=== PATIENT | male | born 1965 | race Caucasian/White ===

== ENCOUNTER 2018-08-01 10:59 | Day surgery (SDC) | payer OTHER ==
[2018-08-01] MEDS ORDERED: NS 1,000 ML IV (11:15)
[2018-08-01] MEDS ORDERED: PROPOFOL 200 MG/20 ML VIAL As Ordered ×3 (11:16→12:40)
[2018-08-01] MEDS ORDERED: LIDOCAINE 2% INJ 100 MG/5 ML SDV (FOR ANES.) As Ordered (11:16)
[2018-08-01] MEDS ORDERED: fentaNYL 100 MCG/2 ML INJECTION (J3010) As Ordered (11:16)
== END 2018-08-01 13:35 | disposition home or self-care (01) ==
LOC: M OPP 10:59
DX: Z12.11 Encounter for screening for malignant neoplasm of colon (principal); K21.9 Gastro-esophageal reflux disease without esophagitis; R12 Heartburn; F32.9 Major depressive disorder, single episode, unspecified; Z87.820 Personal history of traumatic brain injury; M19.90 Unspecified osteoarthritis, unspecified site; G47.8 Other sleep disorders; G47.30 Sleep apnea, unspecified; R06.83 Snoring; F17.210 Nicotine dependence, cigarettes, uncomplicated; E66.9 Obesity, unspecified; Z88.8 Allergy status to other drugs, medicaments and biological substances; Z79.899 Other long term (current) drug therapy
CPT/HCPCS: G0121

== ENCOUNTER 2019-03-30 08:52 | Observation (INO) | payer OTHER ==
[~2019-03-30] VITALS: Ht 180.3 cm; Wt 101.9 kg
[~2019-03-30 08:52] MED LIST: ADDE10CA3 PO; ADDE30CA3 PO; CELE1CAP4 PO; CENTCHW4 PO; DEPA1TAB3 PO; GLUC1CAP10 PO; PROT1TAB2 PO; ZOLO100T PO
[2019-03-30 09:33] LABS: BASO % 0.4 % (0.0-1.0); EOS # 0.1 10^3/uL (0.0-0.50); EOS % 1.2 % (0.0-3.0); HEMOGLOBIN 16.4 g/dl (13.5-17.5); LYMPH % 19.4 % (24.0-44.0); MEAN CORPUSCULAR HGB CONC 34.9 g/dl (32.0-36.5); MEAN CORPUSCULAR VOLUME 97.3 fl (80.0-96.0); MONO % 10.2 % (0.0-5.0); NEUTROPHILS # 6.9 10^3/uL (1.8-7.7); NEUTROPHILS % 67.9 % (36.0-66.0); PLATELET COUNT, AUTOMATED 244 10^3/uL (150-450); RED BLOOD COUNT 4.83 10^6/uL (4.30-6.10); WHITE BLOOD COUNT 10.1 10^3/uL (4.0-10.0)
[2019-03-30 09:41] LABS: INR 0.99; PROTHROMBIN TIME 13.2 SECONDS (12.1-14.4)
--- NOTE | 2019-03-30 09:54 | REP ---
CHEST: Single view. There is no evidence of acute infiltrate. No pleural effusion is seen. The heart is normal in size. The mediastinal silhouette is unremarkable. The visualized osseous structures are intact. IMPRESSION: No acute pulmonary disease. Electronically Signed by Farrukh Burgos MD 04/04/2019 11:34 A
[2019-03-30 11:45] LABS: ALBUMIN 3.3 GM/DL (3.2-5.2); ALT/SGPT 34 U/L (12-78); BILIRUBIN,DIRECT 0.2 MG/DL (0.0-0.2); BILIRUBIN,TOTAL 0.9 MG/DL (0.2-1.0); BLOOD UREA NITROGEN 11 MG/DL (7-18); CARBON DIOXIDE LEVEL 27 MEQ/L (21-32); CHLORIDE LEVEL 109 MEQ/L (98-107); CPK CREATINE PHOSPHOKINASE 123 U/L (39-308); CREATININE FOR GFR 0.91 MG/DL (0.70-1.30); GLOMERULAR FILTRATION RATE > 60.0 (>56); GLUCOSE, FASTING 117 MG/DL (70-100); MB/CK RELATIVE INDEX 1.79 (< OR =4); NT-PRO BNP 125 PG/ML (<125); POTASSIUM SERUM 4.3 MEQ/L (3.5-5.1); SODIUM LEVEL 142 MEQ/L (136-145); THYROID STIMULATING HORMONE 0.837 uIU/ML (0.358-3.740); TROPONIN I < 0.02 NG/ML (< 0.10)
[2019-03-30] MEDS ORDERED: ISOVUE-370 76% 100ML VIAL (Q9967) As Ordered ONE (12:07)
--- NOTE | 2019-03-30 13:03 | REP ---
CT pulmonary angiogram: With IV contrast. History: Chest pain and shortness of breath. Comparison studies: Comparison is made with today's chest x-ray. Contrast dose: 75 mL of Isovue [address] technique: Helical scanning is acquired and overlapping 1.5 mm and contiguous 3 mm axial images are reformatted. In addition, maximum intensity projection and multiplanar re-formation images are generated in sagittal and coronal imaging projections. CT pulmonary angiographic findings: There is good opacification of the pulmonary arterial tree and there are multiple filling defects in the pulmonary arterial tree indicating fairly extensive pulmonary emboli. These are seen in both lower lobes, both upper lobes, and in the right middle lobe distribution. No central main pulmonary artery thrombi seen. Thoracic aorta enhances normally and homogeneously. No dissection or aneurysm is seen. There is no evidence of pleural or pericardial effusion. No hilar or mediastinal mass or adenopathy is observed. Bone window settings show no bony destructive lesion. No pulmonary mass or significant nodule is appreciated. Visualized upper abdominal structures are unremarkable. Impression: Multiple bilateral fairly extensive pulmonary emboli. Findings were telephoned to the referring provider at the time of this dictation. Electronically Signed by Reji Wong MD 03/30/2019 02:51 P
[2019-03-30] MEDS ORDERED: DEPA500T2 PO (13:43)
[2019-03-30] MEDS ORDERED: MULT1TAB50 PO (13:43)
--- NOTE | 2019-03-30 14:27 | REP ---
Duplex extremity venous ultrasound: Bilateral lower extremity. History: Pulmonary embolus. Question DVT. Findings: The deep veins are anechoic and fully compressible from the groin to the popliteal fossa in the left and right lower extremity. Color flow imaging is homogeneous. Spectral Doppler interrogation demonstrates intact respiratory variation in flow and normal manual augmentation of flow. There is no evidence of deep vein thrombosis. Impression: Negative bilateral lower extremity duplex venous ultrasound. No evidence of deep vein thrombosis. Electronically Signed by Reji Wong MD 03/30/2019 02:18 P
[2019-03-30] MEDS ORDERED: MOM 30ML SUSPENSION UDC PO PRN (14:45)
[2019-03-30 14:47] LABS: PROTHROMBIN TIME 13.3 SECONDS (12.1-14.4)
[2019-03-30 14:48] LABS: PARTIAL THROMBOPLASTIN TIME 30.1 SECONDS (25.4-37.6)
--- NOTE | 2019-03-30 15:05 | HPEPDOC ---
[facility] Medical History & Physical Date of Admission March 30, 2019 History and Physical CHIEF COMPLAINT: [Chest pain and shoulder pain] HISTORY OF PRESENT ILLNESS: [53-year-old gentleman with significant past medical history mood disorder and GERD who presented complaining of left-sided chest pain and shoulder pain that started yesterday last night. Patient describes severe chest pain pain as nonradiating pain that worsens with deep breath. Rodrigo chavez denies of any shortness of breath associated with this. Patient also complained of left-sided calf pain but thought to be muscle pain. Patient denies of any family history or self history of cancer. Patient denies of any immobility. Agent does smoke on and off and lasts use of cigarette was 4 days ago he does utilize vapping. Emergency room patient received medication in addition was evaluated with a CT of the chest which showed multiple bilateral fairly extensive pulmonary emboli. Lower extremity Doppler was negative for DVT. Chest x-ray showed no acute pulmonary disease. EKG showed heart rate of 78, sinus, no ST elevation. Cardiac enzymes negative. Patient denies of any fever, cough, shortness of breath but does have pain with deep aspiration, diarrhea, dysuria.With patient's consent I spoke to his daughter, who is a nurse, regarding patient.She inform me that patient drinks heavily. Patient stated he only drank 3-4 beers/sometimes a day. Daughter informed he drinks more. PAST MEDICAL HISTORY: Mood disorder GERD PAST SURGICAL HISTORY: 2 ankle surgery 2 Right knee surgery Right ear surgery with hearing implant Left ear surgery Left wrist surgery SOCIAL HISTORY: Patient on and off smokes cigarettes but last cigarette use was 4 days ago but now he does vaping where one tank last 4 days. no Ivda. FAMILY HISTORY: Father had brain tumor/cancer, mother healthy ALLERGIES: Please see below. REVIEW OF SYSTEMS: 10 point review systems negative other than those described in HPI HOME MEDICATIONS: Please see below. PHYSICAL EXAMINATION: VITAL SIGNS: Please see below GENERAL APPEARANCE: Resting comfortably, not obese HEENT: Normocephalic, PERRLA, Mucous moist, CARDIOVASCULAR: S1,S2, pulse present, regularly, regular LUNGS: Equal air entry b/l, no wheezes or crackle ABDOMEN: Soft, BS present, no tenderness, no guarding EXTREMITIES: B/L no edema, capillary refill present SKIN: Warm, No fever NEUROLOGICAL: Cranial nerves grossly intact PSYCHIATRIC: Normal mood and affect for current situation LABORATORY DATA: See below. IMAGING: [CTA chest:Multiple bilateral fairly extensive pulmonary emboli. Findings were telephoned to the referring provider at the time of this dictation. LE Doppler:Negative bilateral lower extremity duplex venous ultrasound. No evidence of deep vein thrombosis. CXR:No acute pulmonary disease.] MICROBIOLOGY: Please see below. Assessment and plan; PE -CTA chest:Multiple bilateral fairly extensive pulmonary emboli. Findings were telephoned to the referring provider at the time of this dictation. -LE Doppler:Negative bilateral lower extremity duplex venous ultrasound. No evidence of deep vein thrombosis. -CXR:No acute pulmonary disease. -Lovenox subcutaneous convert to oral agent if stable overnight -Serial cardiac enzyme negative -TSH nml, BNP nml -Telemetry -Pain management -Monitor for desaturation -Please follow up with PCP regarding hypercoagulable workup laboratory tests pending Left calf pain -Lower extremity Doppler negative for DVT Mood disorder -Resume home regimen HX of ETOH use -CIWA protocol prn PE treatment as mentioned above Vital Signs Vital Signs Date Time Temp Pulse Resp B/P (MAP) Pulse Ox O2 Delivery O2 Flow Rate FiO2 03/30/19 14:31 138/83 (101) 03/30/19 14:22 56 96 03/30/19 11:37 20 Room Air 03/30/19 09:02 98.3 Laboratory Data Labs 24H Laboratory Tests 2 03/30/19 09:09: Immature Granulocyte % (Auto) 0.9, White Blood Count 10.1H, Red Blood Count 4.8 3, Hemoglobin 16.4, Hematocrit 47.0, Mean Corpuscular Volume 97.3H, Mean Corpuscular Hemoglobin 34.0H, Mean Corpuscular Hemoglobin Concent 34.9, Red Cell Distribution Width 12.3, Platelet Count 244, Neutrophils (%) (Auto) 67.9H, Lymphocytes (%) (Auto) 19.4L, Monocytes (%) (Auto) 10.2H, Eosinophils (%) (Auto) 1.2, Basophils (%) (Auto) 0.4, Neutrophils # (Auto) 6.9, Lymphocytes # (Auto) 2.0, Monocytes # (Auto) 1.0H, Eosinophils # (Auto) 0.1, Basophils # (Auto) 0.0, Nucleated Red Blood Cells % (auto) 0.0, Prothrombin Time 13.2, Prothromb Time International Ratio 0.99 03/30/19 10:02: Anion Gap 6L, Glomerular Filtration Rate > 60.0, Calcium Level 9.0, Aspartate Amino Transf (AST/SGOT) 25, Alanine Aminotransferase (ALT/SGPT) 34, Alkaline Phosphatase 114, Total Bilirubin 0.9, Direct Bilirubin 0.2, Total Creatine Kinase 123, Creatine Kinase MB 2.0, Creatine Kinase MB Relative Index 1.79, Troponin I < 0.02, KM-Zfc-[id number]-Type Natriuretic Peptide 125, Total Protein 7.0, Albumin 3.3, Albumin/Globulin Ratio 0.89L, Thyroid Stimulating Hormone (TSH) 0.837 03/30/19 14:23: Prothrombin Time 13.3, Prothromb Time International Ratio 1.00, Activated Partial Thromboplast Time 30.1 CBC/BMP Laboratory Tests 03/30/19 09:09 Red Blood Count 4.83, Mean Corpuscular Volume 97.3 H, Mean Corpuscular Hemoglobin 34.0 H, Mean Corpuscular Hemoglobin Concent 34.9, Red Cell Distribution Width 12.3, Neutrophils (%) (Auto) 67.9 H, Lymphocytes (%) (Auto) 19.4 L, Monocytes (%) (Auto) 10.2 H, Eosinophils (%) (Auto) 1.2, Basophils (%) (Auto) 0.4, Neutrophils # (Auto) 6.9, Lymphocytes # (Auto) 2.0, Monocytes # (Auto) 1.0 H, Eosinophils # (Auto) 0.1, Basophils # (Auto) 0.0 03/30/19 10:02 Home Medications Scheduled Celecoxib (Celebrex) 200 Mg Cap, 200 MG PO DAILY Dextroamphetamine/Amphetamine (Adderall Xr 30 mg Capsule) 1 Cap Cap, 30 MG PO QAM Dextroamphetamine/Amphetamine (Adderall Xr 10 mg Capsule) 1 Cap Cap, 10 MG PO QPM TAKES AT NOON Divalproex Sodium (Depakote ER) 500 Mg Tab.er.24h, 500 MG PO BID Gluc Erazo/Chondro Erazo A/Vit C/Mn (Glucosamine-Chondroitin Cap) 1 Cap Cap, 1 CAP PO BID Multivitamin/Iron/Folic Acid (Centrum Adults Tablet) 1 Each Tablet, 1 EACH PO BID Pantoprazole Sodium (Protonix) 40 Mg Tab, 40 MG PO DAILY Sertraline Hcl (Zoloft) 100 Mg Tab, 150 MG PO DAILY Allergies Coded Allergies: No Known Allergies (Verified , 12/08/04) MOHINI BALLESTEROS MD March 30, 2019 15:05
[2019-03-30 15:16] LABS: NT-PRO BNP 127 PG/ML (<125); TROPONIN I < 0.02 NG/ML (< 0.10)
[2019-03-30] MEDS ORDERED: ENOXAPARIN 100MG/1ML SYRINGE (J1650) SC ONE (15:45)
[2019-03-30] MEDS: PERCOCET 5MG/325MG TAB PO PRN ×2 (17:30→23:39)
[2019-03-30 17:50] VITALS: BP 154/88
--- NOTE | 2019-03-30 19:13 | ECGEPIP ---
Stationary ECG Study [facility] - ED Test Date: 2019-03-30 Pat Name: PAULINE LYLE Department: Room: - Gender: M Records Associate: : 1965 Requested By: Linda Ramos Order Number: [id number] Reading MD: Darell Frost Measurements Intervals [place] Rate: 78 P: 33 KS: 150 QRS: 57 QRSD: 90 T: 67 QT: 369 QTc: 422 Interpretive Statements SINUS RHYTHM MINIMAL VOLTAGE CRITERIA FOR LVH, CONSIDER NORMAL VARIANT BENIGN EARLY REPOLARIZATION Electronically Signed On 03-30-2019 19:13:45 EDT by Darell Frost
[2019-03-30] MEDS ORDERED: MORPHINE 4 MG/ML 1ML VIAL/SYRINGE (J2270) IV ONE (20:45)
[2019-03-30] MEDS: DOCUSATE SODIUM 100 MG CAP PO SCH (21:00)
[2019-03-30 22:00] VITALS: BP 129/80
[2019-03-30] MEDS ORDERED: LORazepam 2 MG TAB PO PRN (23:15)
[2019-03-30] MEDS: THIAMINE 100 MG TAB PO SCH (23:39)
[2019-03-31] MEDS ORDERED: MORPHINE 4 MG/ML 1ML VIAL/SYRINGE (J2270) IV ONE (05:45)
[2019-03-31 06:00] VITALS: BP 127/73
[2019-03-31 06:00] LABS: HEMATOCRIT 47.2 % (42.0-52.0); HEMOGLOBIN 16.1 g/dl (13.5-17.5); MEAN CORPUSCULAR HEMOGLOBIN 33.6 pg (27.0-33.0); MEAN CORPUSCULAR HGB CONC 34.1 g/dl (32.0-36.5); MEAN CORPUSCULAR VOLUME 98.5 fl (80.0-96.0); PLATELET COUNT, AUTOMATED 228 10^3/uL (150-450); RED BLOOD COUNT 4.79 10^6/uL (4.30-6.10); WHITE BLOOD COUNT 7.1 10^3/uL (4.0-10.0)
[2019-03-31] MEDS ORDERED: ENOXAPARIN 100MG/1ML SYRINGE (J1650) SC SCH (06:00)
[2019-03-31 06:47] LABS: BLOOD UREA NITROGEN 17 MG/DL (7-18); CALCIUM LEVEL 8.6 MG/DL (8.5-10.1); CARBON DIOXIDE LEVEL 30 MEQ/L (21-32); CHLORIDE LEVEL 106 MEQ/L (98-107); GLOMERULAR FILTRATION RATE > 60.0 (>56); GLUCOSE, FASTING 94 MG/DL (70-100); POTASSIUM SERUM 4.1 MEQ/L (3.5-5.1); SODIUM LEVEL 141 MEQ/L (136-145)
[2019-03-31] MEDS: THIAMINE 100 MG TAB PO SCH ×2 (08:35→20:07)
[2019-03-31] MEDS: FOLIC ACID 1 MG TAB PO SCH (08:35)
[2019-03-31] MEDS: MULTIVITAMINS/MINERALS THERAP 1 TAB PO SCH (08:35)
[2019-03-31] MEDS: PERCOCET 5MG/325MG TAB PO PRN ×3 (08:36→21:28)
[2019-03-31] MEDS: DOCUSATE SODIUM 100 MG CAP PO SCH ×2 (08:36→20:06)
[2019-03-31 14:00] VITALS: BP_SYST 132; BP_SYST 152; BP_DIAS 80; BP_DIAS 83
--- NOTE | 2019-03-31 16:43 | IPNPDOC ---
Date Seen The patient was seen on 03/31/19. Progress Note SUBJECTIVE: Spoke to daughter with patient's permission via speaker phone with patient and his other family. Explained patient's condition and treatment plan to the satisfaction of the patient and he agree to current plan. Daughter (nurse located in [place]) requested Pulmonary consult, will oblige. OBJECTIVE PHYSICAL EXAMINATION: VITAL SIGNS: Please see below GENERAL APPEARANCE: Resting comfortably, not obese HEENT: Normocephalic, PERRLA, Mucous moist, CARDIOVASCULAR: S1,S2, pulse present, regularly, regular LUNGS: Equal air entry b/l, no wheezes or crackle ABDOMEN: Soft, BS present, no tenderness, no guarding EXTREMITIES: B/L no edema, capillary refill present SKIN: Warm, No fever NEUROLOGICAL: Cranial nerves grossly intact PSYCHIATRIC: Normal mood and affect for current situation LABORATORY DATA, IMAGING STUDIES, MICROBIOLOGY: Please see below. ASSESSMENT AND PLAN: 53-year-old gentleman with significant past medical history mood disorder and GERD who presented complaining of left-sided chest pain. EKG showed no St elevation and cardiac enzymes negative. But he was found to have PE on CTA chest. PE -CTA chest:Multiple bilateral fairly extensive pulmonary emboli. Findings were telephoned to the referring provider at the time of this dictation. -LE Doppler:Negative bilateral lower extremity duplex venous ultrasound. No evidence of deep vein thrombosis. -CXR:No acute pulmonary disease. -Lovenox subcutaneous convert to oral agent if stable overnight -Serial cardiac enzymes negative -TSH nml, BNP nml, lipase nml -Telemetry -Pain management -Monitor for desaturation, per staff patient able to ambulate 500ft and stayed above 94% on RA without desaturation. -Please follow up with PCP regarding hypercoagulable workup laboratory tests pending -Pulmonary consult w Dr. Brantley as per family's wishes. Left calf pain -Lower extremity Doppler negative for DVT Mood disorder -Resume home regimen HX of ETOH use -CIWA protocol prn -CIWA nml PE treatment as mentioned above DISPOSITION: [anticipate d/c within 24h]. VS, I&O, 24H, Fishbone Vital Signs/I&O Vital Signs Date Time Temp Pulse Resp B/P (MAP) Pulse Ox O2 Delivery O2 Flow Rate FiO2 03/31/19 14:49 18 03/31/19 14:00 66 132/80 03/31/19 14:00 97.4 96 03/30/19 11:37 Room Air I&O- Last 24 Hours up to 6 AM 03/31/19 06:00 Intake Total 520 ml Output Total 0 ml Balance 520 ml Laboratory Data 24H LABS Laboratory Tests 2 03/31/19 05:49: Nucleated Red Blood Cells % (auto) 0.0, Anion Gap 5L, Glomerular Filtration Rate > 60.0, Blood Urea Nitrogen 17#, Creatinine 1.00, Sodium Level 141, Potassium Level 4.1, Chloride Level 106, Carbon Dioxide Level 30, Calcium Level 8.6 CBC/BMP Laboratory Tests 03/31/19 05:49 Red Blood Count 4.79, Mean Corpuscular Volume 98.5 H, Mean Corpuscular Hemoglobin 33.6 H, Mean Corpuscular Hemoglobin Concent 34.1, Red Cell Distribution Width 12.3, Calcium Level 8.6 MOHINI BALLESTEROS MD March 31, 2019 16:43
[2019-03-31 16:51] LABS: LIPASE 267 U/L (73-393)
[2019-03-31] MEDS ORDERED: ELIQ5TAB PO (16:55)
[2019-03-31] MEDS: PANTOPRAZOLE 40MG TAB (PROTONIX) PO SCH (17:15)
[2019-03-31] MEDS: SERTRALINE HCL 50 MG TAB PO SCH (17:15)
--- NOTE | 2019-03-31 17:31 | CR ---
DATE OF CONSULTATION: 03/31/2019 I was asked by Dr. Vasquez to evaluate Mr. Santiago for pulmonary embolism recommendations. HISTORY OF PRESENT ILLNESS: Mr. Santiago is a 53-year-old white male who was in his usual state of health. On Tuesday night, he did some lifting of a scooter and tools and developed pain on his left side, as well as in the left shoulder blade area. It hurt worse with deep breath and when he was coughing. He initially thought it was musculoskeletal. On Tuesday, he proceeded to an urgent care where he was thinking he would get a pain medication. Instead, he was referred to the emergency department at [facility]. There, his evaluation included a CT pulmonary angiogram, which showed bilateral pulmonary emboli, but no infarction. His EKG did not show any evidence of right ventricular strain. His oxygenation on room air was acceptable. The decision was made to admit him. He was started on Lovenox in the emergency department that was continued this morning. Presently he feels better, but still notes discomfort when he takes a deep breath or coughs in the left region. Mr. Santiago denies any significant shortness of breath. No hemoptysis. He has never had a pulmonary embolism or similar symptoms before. He has had a lot of muscle strains in the past. He noted some left calf tightness, but did not find it unusual. No injuries to his legs or chest. No paroxysmal nocturnal dyspnea (PND) or orthopnea. He has sleep apnea and just recently started wearing a dental appliance. No persistent fevers, chills or night sweats. No significant gastroesophageal reflux disease (GERD) symptoms. He has an occasional cough, is not productive. Mr. Santiago notes that he flew to [place] 4-6 weeks ago. He flew to [place]. On the way back, they were on the tarmac for two hours. They then flew 45 minutes and then the plane was diverted to [place] because of fume smells in the cabin. During that entire time until they deplaned in [place], he did not ambulate. He also notes that he has a job where he sits and he stands. 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 He will come in the morning at 6:30 and he may not get out of his chair until after 10:30 or 11. He has no long car rides. No other sedentary activities. He has no previous history of a thromboembolic event. PAST MEDICAL HISTORY: 1. Obstructive sleep apnea (ROBLES), recently obtained a dental appliance. 2. Mood disorder. 3. Gastroesophageal reflux disease (GERD). 4. Status post right ankle surgery times two. 5. Status post right knee surgery times two. 6. Status post right ear surgery with hearing implant. 7. Status post left ear surgery. 8. Status post left wrist surgery. 9. Tobacco usage, ongoing at a low level. FAMILY HISTORY: His father had a brain tumor/cancer. His mother is healthy. No family history of thromboembolic disease. SOCIAL HISTORY: Mr. Santiago began smoking cigarettes at age 13 and quit around age 37. At that time, he smoked perhaps one pack per day, giving him likely close to 20 pack year history. He began smoking again "on and off" about two years ago. He also vapes and occasionally uses marijuana. He does not take any dietary supplements or [id number] medications except a multivitamin. He states he drinks two to three beers per day, though in reviewing the notes, per his daughter he drinks more than that per day. 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 ALLERGIES: No known drug allergies. MEDICATIONS ON ADMISSION: - Celebrex 200 mg by mouth daily - Adderall XR 30 mg by mouth every morning and 10 mg every evening - Depakote ER 500 mg by mouth twice a day - glucosamine chondroitan one capsule by mouth twice a day - multivitamin one by mouth twice a day - Protonix 40 mg by mouth daily - sertraline 150 mg by mouth daily REVIEW OF SYSTEMS: As per history of present illness (HPI). The remainder of pertinent review of systems are negative. PHYSICAL EXAMINATION: GENERAL: Mr. Santiago is lying in bed in no acute distress, speaking in complete and full sentences. On force maneuver, he had an occasional cough and did appear to have some discomfort on his left side when he did so. VITAL SIGNS: Temperature 97.4, with a maximum temperature (T-max) of 97.6, respiratory rate 18, pulse 66, blood pressure 132/80, with SpO2 96% on room air. HEENT: Anicteric. Nares patent bilaterally. Moist mucosa. Oropharynx clear. Good dentition. Mallampati IV. NECK: Supple, without jugular venous distention (JVD), without thyromegaly or masses. Trachea is midline. LYMPHATICS: Without cervical or supraclavicular lymphadenopathy. LUNGS: Symmetric excursion. Good air entry. No wheeze, rhonchi or crackle on tidal excursion or force maneuver. Again, he appeared uncomfortable when he would cough with a force maneuver. Normal inspiratory to expiratory ratio (I:E) without change in force maneuver. No accessory muscle usage or retractions. Normal percussion. Normal palpation. CARDIOVASCULAR: Regular rate and rhythm with a normal S1, S2. No murmur, rub or gallop appreciated. ABDOMEN: Normoactive bowel sounds. Soft, nondistended, nontender. No hepatosplenomegaly or masses appreciated. EXTREMITIES: Without clubbing, cyanosis or edema. Palpable pedal pulses bilaterally. No calf tenderness. Negative Ian n sign. LABORATORY DATA: Complete blood count (CBC) showed a hemoglobin of 16.1, hematocrit 47.2, platelet count 228,000, white blood cell count 7100. Chemistry showed a sodium of 141, potassium 4.1, chloride 106, bicarbonate 30, anion gap 5, BUN 17, creatinine 1.0, glucose 94, calcium 8.6. Additional laboratory values from admission showed a total bilirubin of 0.9, AST 25, ALT 34, alkaline phosphatase 114, total protein 7, albumin 3.3. CK 123, CK-MB 2.0. Troponin-I less than 0.02. BNP 127. TSH 0.837. Anticardiolipin antibodies are pending. Factor II mutation is pending. Protein C, protein S, antithrombin III, factor IV [place], and [place] dRVVT screen are pending. I reviewed his EKG, which showed normal sinus rhythm with a heart rate of 78. No RV strain. I reviewed his chest CT scan, as well as the report from 03/30/2019. That CT scan showed normal appearing cardiac silhouette and pulmonary vascular shadows. No mediastinal or hilar lymphadenopathy. There are no consolidated regions. No evidence of infarction. There are bilateral pulmonary emboli. Bilateral lower extremity Doppler from 03/30/2019 are negative. IMPRESSION: 1. Pulmonary embolism. In reviewing the chart, this appears to be hemodynamically stable pulmonary embolism. 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 2. Chest pain. He has some left-sided pain, may be related to his pulmonary embolism, though there is no evidence of infarction, at least that is an issue of CT scan. It is also possible there is a musculoskeletal component to it, given his description of his activities going on at the time. 3. Gastroesophageal reflux disease (GERD). 4. Tobacco usage. RECOMMENDATIONS: 1. I discussed with Mr. Santiago that my recommendation would be to continue anticoagulation for three months. At that point, he needs to have discussions with his primary care providers to whether he should continue therapy lifelong. Those discussions need to include, as noted above, it is difficult to tell whether or not he is considered a unprovoked pulmonary embolism (PE), as he certainly does have some risk factors that could be considered the provoking incident. Obviously, if he has a clotting abnormality, then the recommendation would be for lifelong anticoagulation. 2. If the initial studies do not show any underlying clotting disorder and concern persists, I would recommend referral to hematology. 3. In regards to his pleuritic chest pain, the best agent tends to be a nonsteroidal. Most classically, indomethacin may have a slight benefit to pleural therapy. However, he is already on Celebrex, so the addition of a nonsteroidal is contraindicated. 4. Given that he is already on a nonsteroidal, I feel it is reasonable to use either acetaminophen or low-dose narcotic. He should not require significant medication, as he has no findings of infarction. Thank you for this consultation. At this time the pulmonary service will sign off. No specific pulmonary followup is indicated. However, I would be happy to reevaluate him after he has been on three months' therapy to help with the decision regarding discontinuance of anticoagulation if the primary care provider would find it beneficial if the individual asks that he simply send a pulmonary clinic referral.
[2019-03-31] MEDS: ACETAMINOPHEN TAB 650MG DOSE (2X325MG) PO PRN (18:14)
[2019-03-31] MEDS: APIXABAN 5 MG TAB (ELIQUIS) PO SCH (20:06)
[2019-03-31] MEDS: DIVALPROEX 500MG *ER* TAB PO SCH (20:07)
[2019-03-31 20:15] VITALS: BP 113/80
[2019-03-31 22:00] VITALS: BP 113/86
[2019-04-01] MEDS ORDERED: PERCOCET 5MG/325MG TAB PO ONE (01:45)
[2019-04-01] MEDS: PERCOCET 5MG/325MG TAB PO PRN ×2 (05:15→11:29)
[2019-04-01 06:00] VITALS: BP 134/71
[2019-04-01] MEDS ORDERED: CelecoXIB (CeleBREX) 100 MG CAP PO SCH (09:00)
[2019-04-01] MEDS: SERTRALINE HCL 50 MG TAB PO SCH (09:08)
[2019-04-01] MEDS: DIVALPROEX 500MG *ER* TAB PO SCH (09:09)
[2019-04-01] MEDS: PANTOPRAZOLE 40MG TAB (PROTONIX) PO SCH (09:09)
[2019-04-01] MEDS: THIAMINE 100 MG TAB PO SCH (09:09)
[2019-04-01] MEDS: MULTIVITAMINS/MINERALS THERAP 1 TAB PO SCH (09:09)
[2019-04-01] MEDS: FOLIC ACID 1 MG TAB PO SCH (09:09)
[2019-04-01] MEDS: APIXABAN 5 MG TAB (ELIQUIS) PO SCH (09:10)
[2019-04-01] MEDS: DOCUSATE SODIUM 100 MG CAP PO SCH (09:13)
[2019-04-01] MEDS ORDERED: ELIQ5TAB PO ×2 (09:29→09:45)
[2019-04-01] MEDS ORDERED: OXYC1TAB23 PO ×3 (09:50→17:16)
--- NOTE | 2019-04-01 10:24 | DS.PDOC ---
Discharge Summary General Date of Admission March 30, 2019 at 14:43 Date of Discharge 04/01/19 Discharge Summary PROCEDURES PERFORMED DURING STAY: [None]. ADMITTING DIAGNOSES: PE DISCHARGE DIAGNOSES: PE COMPLICATIONS/CHIEF COMPLAINT: Pulmonary Embolism. HISTORY OF PRESENT ILLNESS: [53-year-old gentleman with significant past medical history mood disorder and GERD who presented complaining of left-sided chest pain and shoulder pain that started yesterday last night. Patient describes severe chest pain pain as nonradiating pain that worsens with deep breath. Patient denies of any shortness of breath associated with this. Patient also complained of left-sided calf pain but thought to be muscle pain. Patient denies of any family history or self history of cancer. Patient denies of any immobility. Agent does smoke on and off and lasts use of cigarette was 4 days ago he does utilize vapping. Emergency room patient received medication in addition was evaluated with a CT of the chest which showed multiple bilateral fairly extensive pulmonary emboli. Lower extremity Doppler was negative for DVT. Chest x-ray showed no acute pulmonary disease. EKG showed heart rate of 78, sinus, no ST elevation. Cardiac enzymes negative. Patient denies of any fever, cough, shortness of breath but does have pain with deep aspiration, diarrhea, dysuria.With patient's consent I spoke to his daughter, who is a nurse, regarding patient.She inform me that patient drinks heavily. Patient stated he only drank 3-4 beers/sometimes a day. Daughter informed he drinks more. ]. HOSPITAL COURSE: [53-year-old gentleman with significant past medical history mood disorder and GERD who presented complaining of left-sided chest pain. EKG showed no St elevation and cardiac enzymes negative. But he was found to have PE on CTA chest. Patient initially treated with lovenox and transitioned to oral medication as he continue to remain hemodynamically stable. At patient's family's request Pulmonology consult was obtained, Pulmonary agree with current management. Patient given prescription for Eliquis and PRN Perocet. Patient aware danger of narcotic use. He may resume Celebrex and also made aware of risk of GI bleed with Eliquis. He is on Protonix and made aware he needs to avoid ETOH. He informed me that he will stop smoking and cease drinking ETOH. Avoid smoking ,drinking alcohol, and sedentary life style, especially for the duration of anticoagulant use. Please follow up with PCP and Dr. Brantley within one week. PE -CTA chest:Multiple bilateral fairly extensive pulmonary emboli. Findings were telephoned to the referring provider at the time of this dictation. -LE Doppler:Negative bilateral lower extremity duplex venous ultrasound. No evidence of deep vein thrombosis. -CXR:No acute pulmonary disease. -Lovenox subcutaneous convert to oral agent if stable overnight -Serial cardiac enzymes negative -TSH nml, BNP nml, lipase nml -Telemetry -Pain management -Monitor for desaturation, per staff patient able to ambulate 500ft and stayed above 94% on RA without desaturation. -Please follow up with PCP regarding hypercoagulable workup laboratory tests pending -Pulmonary consult w Dr. Brantley as per family's wishes. Agreed with management. Left calf pain -Lower extremity Doppler negative for DVT Mood disorder -Resume home regimen HX of ETOH use -CIWA protocol prn -CIWA nml ]. DISCHARGE MEDICATIONS: Please see below. ALLERGIES: Please see below. PHYSICAL EXAMINATION ON DISCHARGE: VITAL SIGNS: Please see below GENERAL APPEARANCE: Resting comfortably, not obese HEENT: Normocephalic, PERRLA, Mucous moist, CARDIOVASCULAR: S1,S2, pulse present, regularly, regular LUNGS: Equal air entry b/l, no wheezes or crackle ABDOMEN: Soft, BS present, no tenderness, no guarding EXTREMITIES: B/L no edema, capillary refill present SKIN: Warm, No fever NEUROLOGICAL: Cranial nerves grossly intact PSYCHIATRIC: Normal mood and affect for current situation LABORATORY DATA: Please see below. IMAGING: [As above] PROGNOSIS: [Improved] ACTIVITY: [As tolerated]. DIET: [regular] DISPOSITION: Home DISCHARGE CONDITION: [Stable]. TIME SPENT ON DISCHARGE: Greater than [40] minutes. Vital Signs/I&Os Vital Signs Date Time Temp Pulse Resp B/P (MAP) Pulse Ox O2 Delivery O2 Flow Rate FiO2 04/01/19 06:00 53 134/71 04/01/19 06:00 97.9 17 94 03/30/19 11:37 Room Air I&O- Last 24 Hours up to 6 AM 04/01/19 06:00 Intake Total 960 ml Output Total 0 ml Balance 960 ml Discharge Medications Scheduled Apixaban (Eliquis) 5 Mg Tablet, 5 MG PO ASDIRECTED 10 MG (2 TABS) TWICE PER DAY FOR TOTAL 7 DAYS THEN 5 MG (1 TAB) TWICE PER DAY Celecoxib (Celebrex) 200 Mg Cap, 200 MG PO DAILY, (Reported) Dextroamphetamine/Amphetamine (Adderall Xr 30 mg Capsule) 1 Cap Cap, 30 MG PO QAM, (Reported) Dextroamphetamine/Amphetamine (Adderall Xr 10 mg Capsule) 1 Cap Cap, 10 MG PO QPM, (Reported) TAKES AT NOON Divalproex Sodium (Depakote ER) 500 Mg Tab.er.24h, 500 MG PO BID, (Reported) Gluc Erazo/Chondro Erazo A/Vit C/Mn (Glucosamine-Chondroitin Cap) 1 Cap Cap, 1 CAP PO BID, (Reported) Multivitamin/Iron/Folic Acid (Centrum Adults Tablet) 1 Each Tablet, 1 EACH PO BID, (Reported) Pantoprazole Sodium (Protonix) 40 Mg Tab, 40 MG PO DAILY, (Reported) Sertraline Hcl (Zoloft) 100 Mg Tab, 150 MG PO DAILY, (Reported) Scheduled PRN Oxycodone HCl/Acetaminophen (Oxycodone-Acetaminophen 5-325) 1 Each Tablet, 1 TAB PO QIDP PRN for pain Allergies Coded Allergies: No Known Allergies (Verified , 12/08/04) MOHINI BALLESTEROS MD April 01, 2019 10:24
[2019-04-01 14:00] VITALS: BP 140/100
[2019-04-01] MEDS: ACETAMINOPHEN TAB 650MG DOSE (2X325MG) PO PRN (14:02)
[2019-04-01] MEDS ORDERED: PERC5TAB12 PO (17:16)
[2019-04-03 11:37] LABS: DRVV SCREEN 53.3 SEC
[2019-04-03 11:39] LABS: PTT LUPUS TYPE ANTICOAG SCREEN 1.3 (0-1.2)
[2019-04-03 11:45] LABS: DRVV CONFIRM 39.2 SEC
[2019-04-03 11:51] LABS: NORMALIZED RATIO 1.3 (0.00-1.20)
== END 2019-04-01 15:11 | disposition home or self-care (01) ==
LOC: EDBD 08:52 → M ED 08:52 → M ED INP 14:43 → M MSPAV 17:38
PROVIDERS: ADMIT Internal Medicine; ATTEND Internal Medicine
DX: I26.99 Other pulmonary embolism without acute cor pulmonale (principal); R07.89 Other chest pain; K21.9 Gastro-esophageal reflux disease without esophagitis; F39 Unspecified mood [affective] disorder; F17.210 Nicotine dependence, cigarettes, uncomplicated; G47.33 Obstructive sleep apnea (adult) (pediatric); Z79.899 Other long term (current) drug therapy
CPT/HCPCS: 36415; 71045; 71275; 80048; 80076; 81240; 81241; 82550; 82553; 83690; 83880; 84311; 84443; 84484; 85025; 85027; 85300; 85301; 85303; 85305; 85598; 85610; 85613; 85730; 86147; 93005; 93041; 93970; 94760; 96372; 96374; 96376; 99285; J1650; J2270; Q9967

== ENCOUNTER 2019-04-02 12:14 | Emergency (ER) | payer OTHER ==
[~2019-04-02] VITALS: Ht 180.3 cm; Wt 103.6 kg
[~2019-04-02 12:14] MED LIST changes: +DEPA500T2 PO; +ELIQ5TAB PO; +MULT1TAB50 PO; +OXYC1TAB23 PO; +PERC5TAB12 PO
--- NOTE | 2019-04-02 13:10 | REP ---
Chest x-ray: Sitting AP portable exam. History: Chest pain. Comparison study: March 30, 2019. Findings: EKG monitoring electrodes overlie the chest. The lungs are well inflated and clear. The pleural angles are sharp. Heart size is normal. Pulmonary vasculature is not increased. No significant bony abnormality is seen. Impression: No active disease. Electronically Signed by Reji Wong MD 04/02/2019 07:29 P
[2019-04-02 13:16] LABS: BASO # 0.1 10^3/uL (0.0-0.2); BASO % 0.7 % (0.0-1.0); EOS # 0.1 10^3/uL (0.0-0.50); EOS % 1.8 % (0.0-3.0); HEMATOCRIT 48.1 % (42.0-52.0); HEMOGLOBIN 16.6 g/dl (13.5-17.5); LYMPH % 29.9 % (24.0-44.0); MEAN CORPUSCULAR HEMOGLOBIN 33.3 pg (27.0-33.0); MEAN CORPUSCULAR HGB CONC 34.5 g/dl (32.0-36.5); MEAN CORPUSCULAR VOLUME 96.6 fl (80.0-96.0); MONO # 0.6 10^3/uL (0.0-0.8); MONO % 8.2 % (0.0-5.0); NEUTROPHILS % 58.8 % (36.0-66.0); PLATELET COUNT, AUTOMATED 277 10^3/uL (150-450); RED BLOOD COUNT 4.98 10^6/uL (4.30-6.10); WHITE BLOOD COUNT 6.8 10^3/uL (4.0-10.0)
--- NOTE | 2019-04-02 13:23 | REP ---
CT Head without contrast HISTORY: Headache COMPARISON: None There is no intraparenchymal hemorrhage, acute infarct, mass or midline shift. The ventricular system is normal in appearance. There is no extra cerebral collection. There is no fracture. The visualized sinuses are clear. IMPRESSION: There is no intracranial lesion. Electronically Signed by Aj Parham MD 04/02/2019 01:14 P
[2019-04-02 13:44] LABS: BLOOD UREA NITROGEN 13 MG/DL (7-18); CALCIUM LEVEL 9.2 MG/DL (8.5-10.1); CARBON DIOXIDE LEVEL 30 MEQ/L (21-32); CHLORIDE LEVEL 106 MEQ/L (98-107); CPK CREATINE PHOSPHOKINASE 71 U/L (39-308); CREATININE FOR GFR 0.93 MG/DL (0.70-1.30); GLOMERULAR FILTRATION RATE > 60.0 (>56); GLUCOSE, FASTING 96 MG/DL (70-100); MB/CK RELATIVE INDEX 2.11 (< OR =4); POTASSIUM SERUM 4.4 MEQ/L (3.5-5.1); SODIUM LEVEL 140 MEQ/L (136-145); TROPONIN I < 0.02 NG/ML (< 0.10)
[2019-04-02] MEDS ORDERED: ACETAMINOPHEN TAB 650MG DOSE (2X325MG) PO ONE (13:45)
[2019-04-02 14:33] VITALS: O2SAT 98
[2019-04-02 14:43] VITALS: BP 132/77
--- NOTE | 2019-04-03 07:18 | ECGEPIP ---
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
== END 2019-04-02 14:44 | disposition home or self-care (01) ==
LOC: M ED 12:14
DX: I26.99 Other pulmonary embolism without acute cor pulmonale (principal); R51 Headache; Z79.899 Other long term (current) drug therapy; Z79.01 Long term (current) use of anticoagulants; Z88.8 Allergy status to other drugs, medicaments and biological substances; F17.210 Nicotine dependence, cigarettes, uncomplicated

== ENCOUNTER → 2019-06-20 | Outpatient (CLI) | payer OTHER ==
--- NOTE | 2019-06-20 15:20 | ECHO ---
DATE OF PROCEDURE: 06/20/2019 Outpatient. AGE: 53. GENDER: Male. HEIGHT: 71 inches. WEIGHT: 230 pounds. BODY SURFACE AREA: 2.24 sq m REFERRING PHYSICIAN: Dr. Sarita Yao INDICATION: History of pulmonary embolism. MEASUREMENTS: 2D MEASUREMENTS: RV: 3.8 cm LV: 4.3 cm Septum: 1.3 cm Posterior wall: 1.3 cm Aortic root: 3.2 cm LA: 4.1 cm LVEF: 75% DOPPLER MEASUREMENTS: AV: 1.63 m/s LVOT: 1.0 m/s LVOT diameter: 2.1 cm MV-E: 72 A: 76 EA ratio: 0.9 Early mitral deceleration time 269 ms. E prime: 6.6 A prime: 10 E/E prime ratio: 10.9 PCWP: 15.4 mmHg PV: 0.8 m/s Pulmonary artery acceleration time: 92 ms RVSP: 41 mmHg IVC: 2.2 cm COMMENTS: Normal sinus rhythm without intraventricular conduction disturbance. Technically challenging study in light of the patient's body habitus, but diagnostically useful information was still obtained. M-mode and two-dimensional echocardiography was performed with pulsed, continuous wave, color flow, and tissue Doppler studies. Mild concentric left ventricle hypertrophy with preserved systolic function. Mildly dilated left atrium with impairment of left ventricular (LV) diastolic function and currently mildly elevated estimated mean left atrial pressure. Normal right heart chamber sizes and wall motion with Doppler evidence of mild pulmonary hypertension. Inferior vena cava (IVC) size upper limits of normal with normal respiratory collapse against an elevated central venous pressure at this time. Normal-appearing and functioning valvular structures. No apparent intracardiac mass or pericardial effusion.
== END ==
LOC: M CARPUL 09:34
PROVIDERS: ATTEND Internal Medicine Pulmonary Disease
DX: Z86.711 Personal history of pulmonary embolism (principal)

== ENCOUNTER → 2019-08-29 | Outpatient (CLI) | payer OTHER ==
[2019-08-29 17:19] LABS: ALBUMIN 3.5 GM/DL (3.2-5.2); ALT/SGPT 37 U/L (12-78); BILIRUBIN,DIRECT 0.1 MG/DL (0.0-0.2); BILIRUBIN,TOTAL 0.6 MG/DL (0.2-1.0); BLOOD UREA NITROGEN 10 MG/DL (7-18); CALCIUM LEVEL 8.8 MG/DL (8.5-10.1); CARBON DIOXIDE LEVEL 32 MEQ/L (21-32); CHLORIDE LEVEL 103 MEQ/L (98-107); CREATININE FOR GFR 0.92 MG/DL (0.70-1.30); GLOMERULAR FILTRATION RATE > 60.0 (>56); GLUCOSE, FASTING 108 MG/DL (70-100); POTASSIUM SERUM 4.6 MEQ/L (3.5-5.1); SODIUM LEVEL 141 MEQ/L (136-145); TOTAL PROTEIN 6.8 GM/DL (6.4-8.2)
[2019-08-29 17:33] LABS: BASO # 0.1 10^3/uL (0.0-0.2); BASO % 0.6 % (0.0-1.0); EOS # 0.2 10^3/uL (0.0-0.5); EOS % 2.4 % (0.0-3.0); HEMATOCRIT 44.6 % (42.0-52.0); HEMOGLOBIN 14.5 g/dl (13.5-17.5); LYMPH # 2.2 10^3/uL (1.5-5.0); LYMPH % 27.7 % (24.0-44.0); MEAN CORPUSCULAR HEMOGLOBIN 32.4 pg (27.0-33.0); MEAN CORPUSCULAR HGB CONC 32.5 g/dl (32.0-36.5); MEAN CORPUSCULAR VOLUME 99.6 fl (80.0-96.0); MONO # 0.6 10^3/uL (0.0-0.8); MONO % 7.8 % (0.0-5.0); NEUTROPHILS # 4.8 10^3/uL (1.5-8.5); NEUTROPHILS % 61.1 % (36.0-66.0); PLATELET COUNT, AUTOMATED 241 10^3/uL (150-450); RED BLOOD COUNT 4.48 10^6/uL (4.30-6.10); WHITE BLOOD COUNT 7.8 10^3/uL (4.0-10.0)
== END ==
LOC: M SMT 13:00
PROVIDERS: ATTEND Physician Assistant
DX: S22.41XA Multiple fractures of ribs, right side, initial encounter for closed fracture (principal); W18.30XA Fall on same level, unspecified, initial encounter; Y92.009 Unspecified place in unspecified non-institutional (private) residence as the place of occurrence of the external cause

== ENCOUNTER → 2021-06-19 | Outpatient (CLI) | payer OTHER ==
--- NOTE | 2021-06-20 17:56 | REPVR ---
PROCEDURE INFORMATION: Exam: MR Lumbar Spine Without Contrast Exam date and time: 06/19/2021 8:59 AM Age: 55 years old Clinical indication: Low back pain TECHNIQUE: Imaging protocol: Multiplanar magnetic resonance images of the lumbar spine without intravenous contrast. COMPARISON: No relevant prior studies available. FINDINGS: Vertebrae: Vertebral body heights are intact. Alignment is maintained. No pars defect is identified. A few vertebral body hemangiomas are present, largest measuring 11 mm at L4. Spinal cord: The conus is unremarkable in appearance, with its tip at the L1 level. Multilevel findings: There are varying degrees of disc desiccation indicating intervertebral disc degeneration. There also variable degenerative endplate changes. L1-L2: Very small bulge leading to very mild left neural foraminal narrowing without significant spinal stenosis. L2-L3: Disc osteophyte complex combining with facet arthrosis to lead to mild right and very mild left neural foraminal narrowing without significant spinal stenosis. There is small fluid in the right facet joint. L3-L4: Diffuse bulge combining with facet arthrosis to lead to mild bilateral neural foraminal narrowing without significant spinal stenosis. There is small fluid in the facet joints. L4-L5: Diffuse bulge combining with facet arthrosis to lead to mild to moderate right and mild left neural foraminal narrowing with very mild right lateral recess narrowing, without significant central canal stenosis. There is small fluid in the facet joints. L5-S1: Diffuse bulge with a right paracentral annular tear and small focal central protrusion combining with facet arthrosis to lead to mild bilateral neural foraminal narrowing without significant spinal stenosis. Soft tissues: Unremarkable. IMPRESSION: Multilevel disc desiccation indicating intervertebral disk degeneration with disc displacements as described. COMMENTS: If surgery is considered, recommend level confirmation. Electronically signed by: Luis Miguel Cortez On 06/20/2021 17:56:00 PM
--- NOTE | 2021-06-20 18:24 | REPVR ---
PROCEDURE INFORMATION: Exam: MR Cervical Spine Without Contrast Exam date and time: 06/19/2021 8:59 AM Age: 55 years old Clinical indication: Neck pain; Additional info: Back pain, neck pain TECHNIQUE: Imaging protocol: Multiplanar magnetic resonance images of the cervical spine without contrast. COMPARISON: CT Head without contrast 04/02/2019 12:54 PM FINDINGS: Vertebrae: Vertebral body heights are intact. Alignment is maintained. There are variable degenerative endplate changes. Spinal cord: The cervicomedullary junction appears unremarkable. The spinal cord appears normal in signal. Multilevel findings: There are varying degrees of disc desiccation indicating intervertebral disc degeneration. C2-C3: Small left foraminal osteophytic ridge leading to very mild left neural foraminal narrowing without significant spinal stenosis. C3-C4: No significant disc displacement. C4-C5: Small focal central protrusion without significant neural foraminal narrowing or spinal stenosis. C5-C6: Disc osteophyte complex combining with uncinate hypertrophy to lead to moderate bilateral neural foraminal narrowing without significant spinal stenosis. C6-C7: Disc osteophyte complex combining with uncinate hypertrophy to lead to mild right and moderate left neural foraminal narrowing without significant spinal stenosis. C7-T1: Small osteophytic ridge combining with uncinate hypertrophy to lead to very mild bilateral neural foraminal narrowing without significant spinal stenosis. Soft tissues: Unremarkable. Vertebral arteries: Expected flow voids in the vertebral arteries. IMPRESSION: Multilevel disc desiccation indicating intervertebral disk degeneration with disc displacements as described. COMMENTS: If surgery is considered, recommend level confirmation. Electronically signed by: Luis Miguel Cortez On 06/20/2021 18:23:42 PM
== END ==
LOC: M PLAIMG 07:46
PROVIDERS: ATTEND Physician Assistant
DX: M50.121 Cervical disc disorder at C4-C5 level with radiculopathy (principal); M51.16 Intervertebral disc disorders with radiculopathy, lumbar region

== ENCOUNTER → 2021-07-30 | Outpatient (CLI) | payer OTHER | LOC: M PAIN 08:30 | PROVIDERS: ATTEND Anesthesiology | DX: M54.5 Low back pain (principal); M50.10 Cervical disc disorder with radiculopathy, unspecified cervical region; M79.10 Myalgia, unspecified site; K21.9 Gastro-esophageal reflux disease without esophagitis; F32.9 Major depressive disorder, single episode, unspecified; F41.9 Anxiety disorder, unspecified; F17.210 Nicotine dependence, cigarettes, uncomplicated; Z87.820 Personal history of traumatic brain injury; Z86.711 Personal history of pulmonary embolism; Z79.01 Long term (current) use of anticoagulants; Z79.891 Long term (current) use of opiate analgesic; Z79.899 Other long term (current) drug therapy; Z88.8 Allergy status to other drugs, medicaments and biological substances ==

== ENCOUNTER → 2021-11-05 | Outpatient (CLI) | payer OTHER | LOC: M LABSMTC 10:13 | PROVIDERS: ATTEND Anesthesiology | DX: Z01.812 Encounter for preprocedural laboratory examination (principal); Z20.822 Contact with and (suspected) exposure to COVID-19 ==

== ENCOUNTER → 2021-11-10 | Outpatient (CLI) | payer OTHER ==
[~2021-11-10] MED LIST changes: +BUPIVACAINE HCL 0.25% 10ML VIAL As Ordered ONE; +BUPIVACAINE HCL 0.25% 30ML VIAL As Ordered ONE; +TRIAMCINOLONE ACETONIDE SUSP 40 MG/ML VIAL (J3301) As Ordered ONE
== END ==
LOC: M PAIN 14:20
PROVIDERS: ATTEND Anesthesiology
DX: M79.18 Myalgia, other site (principal); G47.30 Sleep apnea, unspecified; K21.9 Gastro-esophageal reflux disease without esophagitis; Z86.711 Personal history of pulmonary embolism; Z86.59 Personal history of other mental and behavioral disorders; Z87.820 Personal history of traumatic brain injury; Z88.8 Allergy status to other drugs, medicaments and biological substances; Z79.01 Long term (current) use of anticoagulants; Z79.899 Other long term (current) drug therapy
CPT/HCPCS: 20552; J3301

== ENCOUNTER → 2021-11-12 | Outpatient (REF) | payer OTHER ==
[~2021-11-12] MED LIST changes: -BUPIVACAINE HCL 0.25% 10ML VIAL As Ordered ONE; -BUPIVACAINE HCL 0.25% 30ML VIAL As Ordered ONE; -TRIAMCINOLONE ACETONIDE SUSP 40 MG/ML VIAL (J3301) As Ordered ONE
== END ==
LOC: M LAB REF 17:17
PROVIDERS: ATTEND Physician Assistant
DX: L82.1 Other seborrheic keratosis (principal)

== ENCOUNTER → 2022-05-05 | Outpatient (CLI) | payer OTHER | LOC: M PAIN 10:00 | PROVIDERS: ATTEND Nurse Practitioner Family | DX: M51.16 Intervertebral disc disorders with radiculopathy, lumbar region (principal); G89.29 Other chronic pain; G47.30 Sleep apnea, unspecified; K21.9 Gastro-esophageal reflux disease without esophagitis; F17.210 Nicotine dependence, cigarettes, uncomplicated; Z86.711 Personal history of pulmonary embolism; Z86.59 Personal history of other mental and behavioral disorders; Z87.820 Personal history of traumatic brain injury; Z88.8 Allergy status to other drugs, medicaments and biological substances; Z79.01 Long term (current) use of anticoagulants; Z79.899 Other long term (current) drug therapy ==

== ENCOUNTER → 2022-05-25 | Outpatient (CLI) | payer OTHER | LOC: M PLAIMG 07:20 | PROVIDERS: ATTEND Physician Assistant | DX: M23.8X2 Other internal derangements of left knee (principal); M94.262 Chondromalacia, left knee ==

== ENCOUNTER → 2022-07-21 | Outpatient (RCR) | payer OTHER | LOC: M PT 06-30 07:38 | PROVIDERS: ATTEND Orthopaedic Surgery Hand Surgery | DX: S83.282A Other tear of lateral meniscus, current injury, left knee, initial encounter (principal); X58.XXXA Exposure to other specified factors, initial encounter; Y92.9 Unspecified place or not applicable; Y93.9 Activity, unspecified; Y99.9 Unspecified external cause status ==

== ENCOUNTER → 2022-07-29 | Outpatient (CLI) | payer OTHER | LOC: M PLALAB 13:42 | PROVIDERS: ATTEND Specialist | DX: R97.20 Elevated prostate specific antigen [PSA] (principal) ==

== ENCOUNTER 2022-08-05 08:43 | Outpatient (RCR) | payer OTHER | END 2022-08-20 | LOC: M PT 08:43 | PROVIDERS: ATTEND Orthopaedic Surgery Hand Surgery | DX: S83.282A Other tear of lateral meniscus, current injury, left knee, initial encounter (principal); X58.XXXA Exposure to other specified factors, initial encounter; Y92.9 Unspecified place or not applicable; Y93.9 Activity, unspecified; Y99.9 Unspecified external cause status ==

== ENCOUNTER → 2022-11-25 | Outpatient (CLI) | payer OTHER | LOC: M LABSMTC 11:23 | PROVIDERS: ATTEND Anesthesiology | DX: Z01.812 Encounter for preprocedural laboratory examination (principal); Z20.822 Contact with and (suspected) exposure to COVID-19 ==

== ENCOUNTER → 2022-11-29 | Outpatient (CLI) | payer OTHER ==
[~2022-11-29] MED LIST changes: +ISOVUE-M 300 61% 15ML VIAL As Ordered ONE; +LIDOCAINE 1% SDV 30ML VIAL As Ordered ONE; +NORCO, ANEXSIA 5/325MG TABLET (HYDROcodone/ACETAMINOPHEN) As Ordered ONE; +diazePAM 5MG TABLET As Ordered ONE; +methylPREDNISolone SUSP 40MG/ML 1ML VIAL (DEPO MEDROL) As Ordered ONE
== END ==
LOC: M PAIN 10:00
PROVIDERS: ATTEND Anesthesiology
DX: M51.16 Intervertebral disc disorders with radiculopathy, lumbar region (principal); G89.29 Other chronic pain; G47.30 Sleep apnea, unspecified; K21.9 Gastro-esophageal reflux disease without esophagitis; Z86.711 Personal history of pulmonary embolism; Z86.59 Personal history of other mental and behavioral disorders; Z87.820 Personal history of traumatic brain injury; Z87.891 Personal history of nicotine dependence; Z88.8 Allergy status to other drugs, medicaments and biological substances; Z79.01 Long term (current) use of anticoagulants; Z79.899 Other long term (current) drug therapy
CPT/HCPCS: 62323; J1030

== ENCOUNTER → 2022-12-20 | Outpatient (CLI) | payer OTHER ==
[~2022-12-20] MED LIST changes: -ISOVUE-M 300 61% 15ML VIAL As Ordered ONE; -LIDOCAINE 1% SDV 30ML VIAL As Ordered ONE; -NORCO, ANEXSIA 5/325MG TABLET (HYDROcodone/ACETAMINOPHEN) As Ordered ONE; -diazePAM 5MG TABLET As Ordered ONE; -methylPREDNISolone SUSP 40MG/ML 1ML VIAL (DEPO MEDROL) As Ordered ONE
== END ==
LOC: M PAIN 09:30
PROVIDERS: ATTEND Anesthesiology
DX: M47.816 Spondylosis without myelopathy or radiculopathy, lumbar region (principal); G89.29 Other chronic pain; K21.9 Gastro-esophageal reflux disease without esophagitis; Z86.711 Personal history of pulmonary embolism; Z86.59 Personal history of other mental and behavioral disorders; Z87.820 Personal history of traumatic brain injury; Z87.891 Personal history of nicotine dependence; Z88.8 Allergy status to other drugs, medicaments and biological substances; Z79.01 Long term (current) use of anticoagulants; Z79.899 Other long term (current) drug therapy
CPT/HCPCS: 76000; G0463

== ENCOUNTER → 2023-06-21 | Outpatient (CLI) | payer OTHER ==
[~2023-06-21] MED LIST changes: +ISOVUE-M 300 61% 15ML VIAL As Ordered ONE; +LIDOCAINE 1% SDV 30ML VIAL As Ordered ONE
== END ==
LOC: M PAIN 12:00
PROVIDERS: ATTEND Anesthesiology
DX: M47.816 Spondylosis without myelopathy or radiculopathy, lumbar region (principal); G89.29 Other chronic pain; G47.30 Sleep apnea, unspecified; K21.9 Gastro-esophageal reflux disease without esophagitis; Z86.59 Personal history of other mental and behavioral disorders; Z87.820 Personal history of traumatic brain injury; Z86.711 Personal history of pulmonary embolism; Z87.891 Personal history of nicotine dependence; Z88.8 Allergy status to other drugs, medicaments and biological substances; Z79.01 Long term (current) use of anticoagulants; Z79.899 Other long term (current) drug therapy
CPT/HCPCS: 64493; 64494; J0665; Q9967

== ENCOUNTER → 2023-06-29 | Outpatient (CLI) | payer OTHER ==
[~2023-06-29] MED LIST changes: -ISOVUE-M 300 61% 15ML VIAL As Ordered ONE; -LIDOCAINE 1% SDV 30ML VIAL As Ordered ONE
== END ==
LOC: M PAIN 09:30
PROVIDERS: ATTEND Anesthesiology
DX: M47.816 Spondylosis without myelopathy or radiculopathy, lumbar region (principal); M46.96 Unspecified inflammatory spondylopathy, lumbar region; G89.29 Other chronic pain; G47.30 Sleep apnea, unspecified; K21.9 Gastro-esophageal reflux disease without esophagitis; Z86.711 Personal history of pulmonary embolism; Z86.59 Personal history of other mental and behavioral disorders; Z87.820 Personal history of traumatic brain injury; Z87.891 Personal history of nicotine dependence; Z88.8 Allergy status to other drugs, medicaments and biological substances; Z79.01 Long term (current) use of anticoagulants; Z79.899 Other long term (current) drug therapy

== ENCOUNTER → 2023-08-29 | Outpatient (CLI) | payer OTHER | LOC: M PAIN 08:30 | PROVIDERS: ATTEND Anesthesiology | DX: M47.816 Spondylosis without myelopathy or radiculopathy, lumbar region (principal); G89.29 Other chronic pain; Z86.711 Personal history of pulmonary embolism; Z87.891 Personal history of nicotine dependence; Z88.8 Allergy status to other drugs, medicaments and biological substances; Z79.01 Long term (current) use of anticoagulants; Z79.899 Other long term (current) drug therapy ==

== ENCOUNTER → 2023-09-02 | Outpatient (CLI) | payer OTHER ==
[~2023-09-02] MED LIST changes: +ISOVUE-M 300 61% 15ML VIAL As Ordered ONE; +LIDOCAINE 1% SDV 30ML VIAL As Ordered ONE
== END ==
LOC: M PAIN 08:30
PROVIDERS: ATTEND Anesthesiology
DX: M47.816 Spondylosis without myelopathy or radiculopathy, lumbar region (principal); G89.29 Other chronic pain; Z86.711 Personal history of pulmonary embolism; Z87.891 Personal history of nicotine dependence; Z88.8 Allergy status to other drugs, medicaments and biological substances; Z79.01 Long term (current) use of anticoagulants; Z79.899 Other long term (current) drug therapy
CPT/HCPCS: 64493; 64494; J0665; Q9967

== ENCOUNTER → 2023-09-16 | Outpatient (CLI) | payer OTHER ==
[~2023-09-16] MED LIST changes: -ISOVUE-M 300 61% 15ML VIAL As Ordered ONE; -LIDOCAINE 1% SDV 30ML VIAL As Ordered ONE
== END ==
LOC: M PAIN 09:30
PROVIDERS: ATTEND Anesthesiology
DX: M47.816 Spondylosis without myelopathy or radiculopathy, lumbar region (principal); M46.96 Unspecified inflammatory spondylopathy, lumbar region; G89.29 Other chronic pain; M54.2 Cervicalgia; K21.9 Gastro-esophageal reflux disease without esophagitis; F32.A Depression, unspecified; F41.9 Anxiety disorder, unspecified; F43.10 Post-traumatic stress disorder, unspecified; Z87.820 Personal history of traumatic brain injury; Z86.711 Personal history of pulmonary embolism; Z87.891 Personal history of nicotine dependence; Z79.01 Long term (current) use of anticoagulants; Z79.891 Long term (current) use of opiate analgesic; Z79.899 Other long term (current) drug therapy; Z88.8 Allergy status to other drugs, medicaments and biological substances

== ENCOUNTER → 2023-09-30 | Outpatient (CLI) | payer OTHER | LOC: M PLALAB 09:59 | PROVIDERS: ATTEND Physician Assistant | DX: R97.20 Elevated prostate specific antigen [PSA] (principal) ==

== ENCOUNTER → 2024-06-27 | Outpatient (CLI) | payer OTHER ==
[2024-06-27 08:52] LABS: BLOOD UREA NITROGEN 13 MG/DL (9-23); CALCIUM LEVEL 9.6 MG/DL (8.5-10.1); CARBON DIOXIDE LEVEL 34 MMOL/L (20-31); CHLORIDE LEVEL 105 MMOL/L (98-107); CREATININE FOR GFR 0.96 MG/DL (0.70-1.30); GLOMERULAR FILTRATION RATE > 60.0 (>56); GLUCOSE, FASTING 109 MG/DL (60-100); POTASSIUM SERUM 4.7 MMOL/L (3.5-5.1); SODIUM LEVEL 141 MMOL/L (136-145)
== END ==
LOC: M LAB 07:28
PROVIDERS: ATTEND Physician Assistant
DX: R97.20 Elevated prostate specific antigen [PSA] (principal)

== ENCOUNTER → 2024-06-28 | Outpatient (CLI) | payer OTHER ==
[~2024-06-28] MED LIST changes: +PROHANCE 279.3MG/ML 15ML VIAL ONE; +PROHANCE 279.3MG/ML 5ML VIAL ONE
== END ==
LOC: M PLAIMG 08:57
PROVIDERS: ATTEND Physician Assistant
DX: R97.20 Elevated prostate specific antigen [PSA] (principal); R93.89 Abnormal findings on diagnostic imaging of other specified body structures
CPT/HCPCS: 72197; A9576

== ENCOUNTER → 2024-09-11 | Outpatient (REF) | payer OTHER, MEDICARE ==
[~2024-09-11] MED LIST changes: -PROHANCE 279.3MG/ML 15ML VIAL ONE; -PROHANCE 279.3MG/ML 5ML VIAL ONE
== END ==
LOC: M SMT 12:21
PROVIDERS: ATTEND Urology
DX: R97.20 Elevated prostate specific antigen [PSA] (principal); C61 Malignant neoplasm of prostate

== ENCOUNTER → 2025-03-15 | Outpatient (REF) | payer MEDICARE, OTHER | LOC: M LABSMT 13:26 | PROVIDERS: ATTEND Urology | DX: Z53.9 Procedure and treatment not carried out, unspecified reason (principal) ==

== ENCOUNTER → 2025-04-02 | Outpatient (CLI) | payer MEDICARE, OTHER ==
[2025-04-02 09:24] LABS: HEMATOCRIT 48.2 % (42.0-52.0); HEMOGLOBIN 16.4 g/dl (13.5-17.5); MEAN CORPUSCULAR HEMOGLOBIN 33.5 pg (27.0-33.0); MEAN CORPUSCULAR VOLUME 98.6 fl (80.0-96.0); PLATELET COUNT, AUTOMATED 229 10^3/uL (150-450); RED BLOOD COUNT 4.89 10^6/uL (4.30-6.10); WHITE BLOOD COUNT 11.9 10^3/uL (4.0-10.0)
[2025-04-02 09:37] LABS: PARTIAL THROMBOPLASTIN TIME 29.3 SECONDS (24.8-34.2); PROTHROMBIN TIME 13.5 SECONDS (12.5-14.5)
[2025-04-02 10:00] LABS: CALCIUM LEVEL 9.4 MG/DL (8.5-10.1); GLOMERULAR FILTRATION RATE 87.2 (>56); POTASSIUM SERUM 4.1 MMOL/L (3.5-5.1)
[2025-04-02 10:01] LABS: PROSTATIC SPECIFIC AG MONITOR 5.3 NG/ML (< 4.00)
== END ==
LOC: M RAD 08:04
PROVIDERS: ATTEND Urology
DX: Z01.818 Encounter for other preprocedural examination (principal); C61 Malignant neoplasm of prostate; Z79.01 Long term (current) use of anticoagulants

== ENCOUNTER → 2025-09-30 | Outpatient (CLI) | payer MEDICARE, OTHER ==
[~2025-09-30] MED LIST changes: +ADDE20TA PO; +ALBU8.5H INH; +BACT800T5 PO; +BRIN1TAB3 PO; +BUPR150T12 PO; +BUSP15TA47 PO; +CELE1CAP99 PO; +COLA100C5 PO; +GABA-1490 PO; +PANT20TA51 PO; +PERCOCET PO; +ROPI2TAB24 PO; +ROPI4TAB21 PO; +TADA5TAB2 PO; +TIZA10TA PO; +[UNRECOGNIZED DRUG - OTHER] PO
== END ==
LOC: M LAB 11:14
PROVIDERS: ATTEND Urology
DX: C61 Malignant neoplasm of prostate (principal)